=== PATIENT | male | born 1970 | race Caucasian/White ===

== ENCOUNTER 2019-04-11 16:22 | Emergency (ER) | payer MEDICAID ==
[~2019-04-11] VITALS: Ht 172.7 cm; Wt 77.0 kg
[2019-04-11] MEDS ORDERED: SODIUM CHLORIDE 0.9% 1,000 ML IV ONE (16:46)
[2019-04-11] MEDS ORDERED: ACETAMINOPHEN 500MG TABLET PO ONE (17:00)
[2019-04-11] MEDS ORDERED: VISCOUS LIDOCAINE 2% 15 ML UDC PO ONE (17:00)
[2019-04-11] MEDS ORDERED: FAMOTIDINE 20MG/2ML VIAL IV ONE (17:00)
[2019-04-11] MEDS ORDERED: MAGNESIUM/ALUMINUM HYDROXIDE/SIMETHICONE 30ML UDC PO ONE (17:00)
[2019-04-11 17:09] LABS: CHLORIDE 113 mEq/L (98-107); EOSINOPHILS % 1.1 % (0.0-5.0); HEMATOCRIT. 36.7 % (42.0-52.0); HEMOGLOBIN. 12.5 g/dL (14.0-18.0); LYMPHOCYTES % 25.7 % (20.0-50.0); MEAN CORPUSCULAR HEMOGLOBIN 32.8 pg (28.0-32.0); MEAN CORPUSCULAR VOLUME 96.1 fL (80.0-94.0); MEAN PLATELET VOLUME 9.2 fl (7.4-10.4); MONOCYTES % 10.7 % (2.0-8.0); NEUTROPHILS % 60.5 % (40.0-76.0); PLATELET 198 x1000/uL (130-400); RED BLOOD CELL COUNT 3.82 mill/uL (4.7-6.1); RED CELL DISTRIBUTION WIDTH 14.8 % (11.6-14.6)
[2019-04-11 20:17] VITALS: BP 102/54
[2019-04-11] MEDS ORDERED: IOHEXOL-350 100 ML BOTTLE ONE (21:28)
== END 2019-04-11 22:13 | disposition home or self-care (01) ==
LOC: ER 16:22
DX: R07.89 Other chest pain (principal); J20.9 Acute bronchitis, unspecified; M79.605 Pain in left leg; F12.10 Cannabis abuse, uncomplicated; F17.290 Nicotine dependence, other tobacco product, uncomplicated; Z88.8 Allergy status to other drugs, medicaments and biological substances; Z88.6 Allergy status to analgesic agent
CPT/HCPCS: 36415; 71045; 71275; 73560; 80053; 83880; 84484; 85025; 85379; 93005; 93971; 96374; 99284; 99406; J3490; J7030; Q9967; Z7610

== ENCOUNTER 2019-06-02 13:13 | Emergency (ER) | payer MEDICAID ==
[~2019-06-02] VITALS: Ht 182.9 cm; Wt 73.0 kg
[2019-06-02] MEDS ORDERED: ACETAMINOPHEN 325MG TABLET PO ONE (14:45)
[2019-06-02 14:55] LABS: BASOPHILS % 0.5 % (0.0-2.0); EOSINOPHILS % 1.3 % (0.0-5.0); HEMATOCRIT. 34.2 % (42.0-52.0); HEMOGLOBIN. 11.8 g/dL (14.0-18.0); LYMPHOCYTES % 11.2 % (20.0-50.0); MEAN CORPUSCULAR HEMOGLOBIN 33.6 pg (28.0-32.0); MEAN CORPUSCULAR VOLUME 97.1 fL (80.0-94.0); MEAN PLATELET VOLUME 8.6 fl (7.4-10.4); MONOCYTES % 9.5 % (2.0-8.0); NEUTROPHILS % 77.5 % (40.0-76.0); PLATELET 137 x1000/uL (130-400); RED BLOOD CELL COUNT 3.52 mill/uL (4.7-6.1); RED CELL DISTRIBUTION WIDTH 14.4 % (11.6-14.6)
[2019-06-02 14:58] LABS: CHLORIDE 109 mEq/L (98-107)
[2019-06-02 15:02] LABS: ETHANOL BLOOD < 10 mg/dL
[2019-06-02 15:36] LABS: *AMPHETAMINES SCREEN URINE NEGATIVE (NEGATIVE); *BARBITURATES SCREEN URINE NEGATIVE (NEGATIVE); *BENZODIAZEPINES SCREEN URINE PRESUMTIVE POSITIVE (NEGATIVE); *COCAINE SCREEN URINE NEGATIVE (NEGATIVE)
[2019-06-02 15:37] LABS: CANNABINOID URINE SCREEN PRESUMTIVE POSITIVE (NEGATIVE); METHADONE URINE SCREEN NEGATIVE (NEGATIVE); OPIATES URINE SCREEN NEGATIVE (NEGATIVE); PHENCYCLIDINE URINE SCREEN NEGATIVE (NEGATIVE)
[2019-06-02 16:01] VITALS: BP 114/66
== END 2019-06-02 16:07 | disposition home or self-care (01) ==
LOC: ER 13:13
DX: L03.116 Cellulitis of left lower limb (principal); F12.10 Cannabis abuse, uncomplicated; F17.210 Nicotine dependence, cigarettes, uncomplicated; Z88.6 Allergy status to analgesic agent
CPT/HCPCS: 36415; 80053; 80305; 80320; 85025; 93970; 99284; G0480

== ENCOUNTER 2019-06-10 07:30 | Emergency (ER) | payer MEDICAID ==
[~2019-06-10] VITALS: Ht 188 cm; Wt 73.0 kg
[2019-06-10] MEDS ORDERED: HYDROCODONE/ACETAMINOPHEN 5/325MG TABLET PO ONE (08:15)
[2019-06-10] MEDS ORDERED: GABAPENTIN 300MG CAPSULE PO ONE (08:15)
[2019-06-10 08:42] VITALS: BP 109/69
== END 2019-06-10 08:49 | disposition home or self-care (01) ==
LOC: ER 07:30
DX: M79.605 Pain in left leg (principal); Q23.9 Congenital malformation of aortic and mitral valves, unspecified; F12.10 Cannabis abuse, uncomplicated; F10.21 Alcohol dependence, in remission; Z98.890 Other specified postprocedural states; Z88.6 Allergy status to analgesic agent
CPT/HCPCS: 99283